=== PATIENT | male | born 1965 | race American Indian/Alaskan Native ===

== ENCOUNTER 2018-06-19 09:03 | Inpatient (IN) | payer MEDICAID ==
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
[2018-06-19] MEDS ORDERED: Albuterol/Ipratropium 3.0-0.5 MG/3 ML Neb Soln NEB ONE (09:33)
[2018-06-19] MEDS: Sodium Chloride 0.9% 10 ML Syringe FLUSH PRN (09:48)
[2018-06-19] MEDS ORDERED: methylPREDNISolone Sodium Succinate 125 MG/2 ML SDV IVPUSH ONE (10:09)
[2018-06-19] MEDS ORDERED: Sodium Chloride 0.9% 1,000 ML IV ONE (10:09)
[2018-06-19] MEDS ORDERED: Acetaminophen/HYDROcodone 325-10 MG Tab PO ONE (10:09)
[2018-06-19] MEDS ORDERED: cefTRIAXone 2 GM in Sodium Chloride 0.9% 100 ML IV ONE (10:09)
[2018-06-19] MEDS ORDERED: Azithromycin 500 MG in Sodium Chloride 0.9% 250 ML IV ONE (10:11)
[2018-06-19 10:21] LABS: ANION GAP 17.4; CHLORIDE,CL 103 mmol/L (101-111); SODIUM,NA 137 mmol/L (135-145)
--- NOTE | 2018-06-19 10:36 | CR ---
Clinical history: 53-year-old male with history "thoracotomy" December 2017 and now WBC 29,000, cough and wheezing. Interpretation: PA/lateral chest films confirms metallic band anchored with screws in the lateral right fifth sixth seventh ribs new since CT exam 27 December 2017 ("multiple rib fractures and right hemoperitoneum"). *Dense new right lower lobe retrocardiac pneumonic like consolidation (infiltrate/atelectasis) when compared to December 2017. Normal cardiac silhouette without cephalization of flow, signs of alveolar edema, lung mass or other focal lobar consolidation. CONCLUSION: Abnormal.
[2018-06-19] MEDS ORDERED: Ondansetron 4 MG/2 ML SDV IVPUSH PRN (11:56)
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
[2018-06-19] MEDS: Heparin Sodium 5,000 Units/ML Vial SUBCUT SCH ×2 (15:03→21:54)
[2018-06-19] MEDS: Piperacillin/Tazobactam 3.375 GM in Sodium Chloride 0.9% 100 ML IV SCH ×2 (15:03→17:52)
[2018-06-19] MEDS: Pregabalin 50 MG Cap PO SCH ×2 (17:55→21:52)
[2018-06-19] MEDS ORDERED: Cyclobenzaprine 10 MG Tab PO SCH (21:00)
[2018-06-19] MEDS: Albuterol/Ipratropium 3.0-0.5 MG/3 ML Neb Soln NEB PRN (21:52)
[2018-06-19] MEDS: Acetaminophen 325 MG Tab PO PRN (22:13)
[2018-06-19] MEDS: Ibuprofen 600 MG Tab PO PRN (22:14)
[2018-06-19] MEDS: Benzonatate 100 MG Cap PO PRN (22:14)
[2018-06-20] MEDS: Piperacillin/Tazobactam 3.375 GM in Sodium Chloride 0.9% 100 ML IV SCH ×5 (00:34→23:42)
[2018-06-20] MEDS: Albuterol/Ipratropium 3.0-0.5 MG/3 ML Neb Soln NEB PRN ×3 (04:39→21:09)
[2018-06-20] MEDS: Heparin Sodium 5,000 Units/ML Vial SUBCUT SCH ×3 (05:07→21:03)
[2018-06-20] MEDS: Albuterol 6.7 GM Inhaler INH PRN (05:12)
[2018-06-20 07:14] LABS: ANION GAP 12.2; CHLORIDE,CL 108 mmol/L (101-111); SODIUM,NA 134 mmol/L (135-145)
[2018-06-20] MEDS: Pregabalin 50 MG Cap PO SCH ×3 (08:38→21:02)
[2018-06-20] MEDS ORDERED: Lisinopril 20 MG Tab PO SCH (09:00)
[2018-06-20] MEDS ORDERED: FLUOXETINE 10 MG PO SCH (09:00)
[2018-06-20] MEDS ORDERED: Metoprolol Succinate 50 MG Tab.ER PO SCH (09:00)
[2018-06-20] MEDS ORDERED: Potassium Chloride 10 MEQ Tab.ER PO ONE (09:00)
--- NOTE | 2018-06-20 10:15 | PCM.PN ---
- General Info Date of Service: 06/20/18 Admission Dx/Problem (Free Text): Pneumonia Subjective Update: Patient continues to have cough. Tessalon Perles did not help. He denied any shortness of breath, nausea or vomiting, change in bowel habits or urinary habits. Denies any other complaints. - Review of Systems General: Reports: No Symptoms HEENT: Reports: No Symptoms Pulmonary: Reports: Cough Cardiovascular: Reports: No Symptoms Gastrointestinal: Reports: No Symptoms Genitourinary: Reports: No Symptoms Musculoskeletal: Reports: No Symptoms Skin: Reports: No Symptoms Neurological: Reports: No Symptoms Psychiatric: Reports: No Symptoms - Patient Data Vitals - Most Recent: Last Vital Signs Temp 36.6 C 06/20/18 08:00 Pulse 97 06/20/18 08:00 Resp 28 H 06/20/18 08:00 BP 119/78 06/20/18 08:00 Pulse Ox 98 06/20/18 08:00 Weight - Most Recent: 122.924 kg I&O - Last 24 Hours: Intake & Output 06/19/18 06/20/18 06/20/18 22:59 06:59 14:59 Intake Total 1539 607 7849 Output Total 125 Balance 6749 178 5123 Lab Results Last 24 Hours: Laboratory Results - last 24 hr 06/19/18 06/19/18 06/19/18 Range/Units 09:45 09:45 09:45 WBC (5.0-10.0) 10^3/uL RBC (4.6-6.2) 10^6/uL Hgb (14.0-18.0) g/dL Hct (40.0-54.0) % MCV (80-100) fL MCH (27.0-34.0) pg MCHC (33.0-35.0) g/dL Plt Count (150-450) 10^3/uL Neut % (Auto) (42.2-75.2) % Lymph % (Auto) (20.5-50.1) % [place] % (Auto) (2-8) % Eos % (Auto) (1.0-3.0) % Baso % (Auto) (0.0-1.0) % Add Manual Diff Neutrophils % (Manual) 78 H (42-75) % Band Neutrophils % 13 % Lymphocytes % (Manual) 6 L (20-50) % Monocytes % (Manual) 3 (2-8) % Sodium 137 (135-145) mmol/L Potassium 3.4 L (3.6-5.0) mmol/L Chloride 103 (101-111) mmol/L Carbon Dioxide 20.0 L (21.0-31.0) mmol/L Anion Gap 17.4 BUN 16 (7-18) mg/dL Creatinine 0.7 (0.6-1.3) mg/dL Est Cr Clr Drug Dosing 114.10 mL/min Estimated GFR (MDRD) > 60 BUN/Creatinine Ratio 22.85 Glucose 106 H (74-105) mg/dL Lactic Acid (0.5-2.2) mmol/L Calcium 8.9 (8.4-10.2) mg/dl Total Bilirubin 1.7 H (0.2-1.0) mg/dL AST 20 (10-42) IU/L ALT 22 (10-60) IU/L Alkaline Phosphatase 106 (42-121) IU/L B-Natriuretic Peptide 28 (0-100) pg/ml Total Protein 7.9 (6.7-8.2) g/dl Albumin 3.0 L (3.2-5.5) g/dl Globulin 4.9 Albumin/Globulin Ratio 0.61 Urine Color (YELLOW) Urine Appearance (CLEAR) Urine pH (5.0-9.0) Ur Specific [place] (1.005-1.030) Urine Protein (NEGATIVE) Urine Glucose (UA) (NEGATIVE) Urine Ketones (NEGATIVE) Urine Occult Blood (NEGATIVE) Urine Nitrite (NEGATIVE) Urine Bilirubin (NEGATIVE) Urine Urobilinogen (0.2-1.0) mg/dL Ur Leukocyte Esterase (NEGATIVE) Urine RBC /HPF Urine WBC (0-5/HPF) /HPF Ur Epithelial Cells /HPF Amorphous Sediment (0/HPF) /HPF Urine Bacteria (0-FEW/HPF) /HPF Urine Mucus /LPF 06/19/18 06/19/18 06/20/18 Range/Units 10:10 10:20 05:59 WBC 20.5 H (5.0-10.0) 10^3/uL RBC 4.65 (4.6-6.2) 10^6/uL Hgb 13.3 L D (14.0-18.0) g/dL Hct 39.6 L (40.0-54.0) % MCV 85.2 (80-100) fL MCH 28.6 (27.0-34.0) pg MCHC 33.6 (33.0-35.0) g/dL Plt Count 232 (150-450) 10^3/uL Neut % (Auto) 88.9 H (42.2-75.2) % Lymph % (Auto) 5.7 L (20.5-50.1) % [place] % (Auto) 5.4 (2-8) % Eos % (Auto) 0.0 L (1.0-3.0) % Baso % (Auto) 0.0 (0.0-1.0) % Add Manual Diff Neutrophils % (Manual) (42-75) % Band Neutrophils % % Lymphocytes % (Manual) (20-50) % Monocytes % (Manual) (2-8) % Sodium (135-145) mmol/L Potassium (3.6-5.0) mmol/L Chloride (101-111) mmol/L Carbon Dioxide (21.0-31.0) mmol/L Anion Gap BUN (7-18) mg/dL Creatinine (0.6-1.3) mg/dL Est Cr Clr Drug Dosing mL/min Estimated GFR (MDRD) BUN/Creatinine Ratio Glucose (74-105) mg/dL Lactic Acid 2.1 (0.5-2.2) mmol/L Calcium (8.4-10.2) mg/dl Total Bilirubin (0.2-1.0) mg/dL AST (10-42) IU/L ALT (10-60) IU/L Alkaline Phosphatase (42-121) IU/L B-Natriuretic Peptide (0-100) pg/ml Total Protein (6.7-8.2) g/dl Albumin (3.2-5.5) g/dl Globulin Albumin/Globulin Ratio Urine Color [place] (YELLOW) Urine Appearance Slightly cloudy (CLEAR) Urine pH 6.0 (5.0-9.0) Ur Specific [place] 1.015 (1.005-1.030) Urine Protein 100 H (NEGATIVE) Urine Glucose (UA) 100 H (NEGATIVE) Urine Ketones 80 H (NEGATIVE) Urine Occult Blood Negative (NEGATIVE) Urine Nitrite Negative (NEGATIVE) Urine Bilirubin Moderate H (NEGATIVE) Urine Urobilinogen >=8.0 H (0.2-1.0) mg/dL Ur Leukocyte Esterase Negative (NEGATIVE) Urine RBC Not seen /HPF Urine WBC 0-5 (0-5/HPF) /HPF Ur Epithelial Cells Moderate H /HPF Amorphous Sediment Few (0/HPF) /HPF Urine Bacteria Rare (0-FEW/HPF) /HPF Urine Mucus Many H /LPF 06/20/18 Range/Units 05:59 WBC (5.0-10.0) 10^3/uL RBC (4.6-6.2) 10^6/uL Hgb (14.0-18.0) g/dL Hct (40.0-54.0) % MCV (80-100) fL MCH (27.0-34.0) pg MCHC (33.0-35.0) g/dL Plt Count (150-450) 10^3/uL Neut % (Auto) (42.2-75.2) % Lymph % (Auto) (20.5-50.1) % [place] % (Auto) (2-8) % Eos % (Auto) (1.0-3.0) % Baso % (Auto) (0.0-1.0) % Add Manual Diff Neutrophils % (Manual) (42-75) % Band Neutrophils % % Lymphocytes % (Manual) (20-50) % Monocytes % (Manual) (2-8) % Sodium 134 L (135-145) mmol/L Potassium 3.2 L (3.6-5.0) mmol/L Chloride 108 (101-111) mmol/L Carbon Dioxide 17.0 L (21.0-31.0) mmol/L Anion Gap 12.2 BUN 21 H (7-18) mg/dL Creatinine 0.7 (0.6-1.3) mg/dL Est Cr Clr Drug Dosing 114.10 mL/min Estimated GFR (MDRD) > 60 BUN/Creatinine Ratio 30.00 Glucose 224 H (74-105) mg/dL Lactic Acid (0.5-2.2) mmol/L Calcium 8.3 L (8.4-10.2) mg/dl Total Bilirubin 0.7 (0.2-1.0) mg/dL AST 18 (10-42) IU/L ALT 21 (10-60) IU/L Alkaline Phosphatase 102 (42-121) IU/L B-Natriuretic Peptide (0-100) pg/ml Total Protein 7.0 (6.7-8.2) g/dl Albumin 2.5 L (3.2-5.5) g/dl Globulin 4.5 Albumin/Globulin Ratio 0.56 Urine Color (YELLOW) Urine Appearance (CLEAR) Urine pH (5.0-9.0) Ur Specific [place] (1.005-1.030) Urine Protein (NEGATIVE) Urine Glucose (UA) (NEGATIVE) Urine Ketones (NEGATIVE) Urine Occult Blood (NEGATIVE) Urine Nitrite (NEGATIVE) Urine Bilirubin (NEGATIVE) Urine Urobilinogen (0.2-1.0) mg/dL Ur Leukocyte Esterase (NEGATIVE) Urine RBC /HPF Urine WBC (0-5/HPF) /HPF Ur Epithelial Cells /HPF Amorphous Sediment (0/HPF) /HPF Urine Bacteria (0-FEW/HPF) /HPF Urine Mucus /LPF Andrés Results Last 24 Hours: Microbiology 06/19/18 10:06 Quick Strep Confirmation Culture - Final Throat NO GROUP A STREP ISOLATED REFERENCE RANGE: NEGATIVE Group A Streptococcus Rapid Screen - Final NEGATIVE STREP A SCREEN REFERENCE RANGE: NEGATIVE 06/19/18 10:06 Influenza Type A Antigen Screen - Final Nasal, Unspecified NEGATIVE INFLUENZA A VIRUS AG REFERENCE RANGE: NEGATIVE Influenza Type B Antigen Screen - Final NEGATIVE INFLUENZA B VIRUS AG REFERENCE RANGE: NEGATIVE 06/19/18 10:20 Anaerobic Blood Culture - Final Blood - Venous - Lab Draw 06/19/18 10:15 Anaerobic Blood Culture - Final Blood - Venous Med Orders - Current: Current Medications Acetaminophen (Tylenol) 650 mg PO Q4H PRN PRN Reason: Pain (Mild 1-3)/fever Last Admin: 06/19/18 22:13 Dose: 650 mg Albuterol (Proventil Hfa) 0 gm INH Q4HR PRN PRN Reason: Wheezing Last Admin: 06/20/18 05:12 Dose: 2 inhaler Albuterol/Ipratropium (Duoneb 3.0-0.5 Mg/3 Ml) 3 ml NEB Q4HRRT PRN PRN Reason: shortness of breath/wheezing Last Admin: 06/20/18 04:39 Dose: 3 ml Benzonatate (Tessalon Perles) 100 mg PO QID PRN PRN Reason: Cough Last Admin: 06/19/18 22:14 Dose: 100 mg Heparin Sodium (Porcine) (Heparin Sodium) 5,000 units SUBCUT Q8HR [facility] Last Admin: 06/20/18 05:07 Dose: Not Given Piperacillin Sod/Tazobactam (Sod 3.375 gm/ Sodium Chloride) 100 mls @ 200 mls/ hr IV Q6HR [facility] Last Infusion: 06/20/18 05:49 Dose: Infused Ibuprofen (Motrin) 600 mg PO Q8H PRN PRN Reason: Pain Last Admin: 06/19/18 22:14 Dose: 600 mg Ondansetron HCl (Zofran) 4 mg IVPUSH Q4HR PRN PRN Reason: Nausea/Vomiting Pregabalin (Lyrica) 200 mg PO TID [facility] Last Admin: 06/20/18 08:38 Dose: 200 mg Sodium Chloride (Saline Flush) 10 ml FLUSH ASDIRECTED PRN PRN Reason: Keep Vein Open Last Admin: 06/19/18 09:48 Dose: 10 ml Discontinued Medications Hydrocodone Bitart/Acetaminophen ([place] 325-10 Mg) 1 tab PO ONETIME ONE Stop: 06/19/18 10:10 Last Admin: 06/19/18 10:31 Dose: 1 tab Albuterol/Ipratropium (Duoneb 3.0-0.5 Mg/3 Ml) 3 ml NEB ONETIME ONE Stop: 06/19/18 09:34 Last Admin: 06/19/18 09:40 Dose: 3 ml Azithromycin 500 mg/ Sodium (Chloride) 250 mls @ 250 mls/hr IV ONETIME ONE Stop: 06/19/18 11:10 Last Admin: 06/19/18 11:10 Dose: 250 mls/hr Ceftriaxone Sodium 2 gm/ (Sodium Chloride) 100 mls @ 200 mls/hr IV ONETIME ONE Stop: 06/19/18 10:38 Last Admin: 06/19/18 10:35 Dose: 200 mls/hr Sodium Chloride (Normal Saline) 1,000 mls @ 999 mls/hr IV .BOLUS ONE Stop: 06/19/18 11:09 Last Admin: 06/19/18 10:27 Dose: 999 mls/hr Methylprednisolone Sodium Succinate (Solu-Medrol) 125 mg IVPUSH ONETIME ONE Stop: 06/19/18 10:10 Last Admin: 06/19/18 10:27 Dose: 125 mg Potassium Chloride (Klor-Con 10) 40 meq PO ONETIME ONE Stop: 06/20/18 09:01 Last Admin: 06/20/18 08:38 Dose: 40 meq - Exam General: Alert, Oriented Lungs: Clear to Auscultation, Normal Respiratory Effort Cardiovascular: Regular Rate GI/Abdominal Exam: Normal Bowel Sounds, Soft, Non-Tender, No Distention Skin: Warm, Dry, Intact Wound/Incisions: Healing Well Neurological: No New Focal Deficit Psy/Mental Status: Alert, Normal Affect, Normal Mood - Problem List Review Problem List Initiated/Reviewed/Updated: Yes - My Orders Last 24 Hours: My Active Orders 06/19/18 11:56 Patient Status [ADT] Routine Oxygen Therapy [RC] .PRN Up With Assistance [RC] ASDIRECTED VTE/DVT Education [RC] , Vital Signs [RC] 00,04,08,12,16,20 PT Evaluation and Treatment [CONS] Routine Acetaminophen [Tylenol] 650 mg PO Q4H PRN Albuterol/Ipratropium [DuoNeb 3.0-0.5 MG/3 ML] 3 ml NEB Q4HRRT PRN Ondansetron [Zofran] 4 mg IVPUSH Q4HR PRN Resuscitation Status Routine 06/19/18 11:57 Intake and Output [RC] .PRN 06/19/18 11:59 RT Aerosol Therapy [RC] ASDIRECTED Albuterol [Proventil HFA] 0 gm INH Q4HR PRN 06/19/18 13:00 Piperacillin/Tazobactam [Zosyn] 3.375 gm Sodium Chloride 0.9% [Normal Saline] 100 ml IV Q6HR 06/19/18 14:00 Heparin Sodium 5,000 units SUBCUT Q8HR Pregabalin [Lyrica] 200 mg PO TID 06/19/18 17:30 LEGIONELLA ANTIGEN [MREF] Stat STREP PNEUMONIAE ANTIGEN [MREF] Stat 06/19/18 21:50 CULTURE ROUTINE NO SMEAR [RM] Stat 06/19/18 21:56 Benzonatate [Tessalon Perles] 100 mg PO QID PRN Ibuprofen [Motrin] 600 mg PO Q8H PRN 06/19/18 Lunch Regular Diet [DIET] 06/21/18 08:18 BASIC METABOLIC PANEL,BMP [CHEM] Routine CBC WITH AUTO DIFF [HEME] Routine - Plan Plan:: lobar pneumonia continue Zosyn, check MRSA nose swab will check blood cultures, strep antigen, Legionella antigen Place patient on nebulizer treatment as needed for shortness of breath Hypertension continue home meds Hypokalemia replete Chronic pain syndrome continue lyrica depression continue fluoxetine DVT prophylaxis heparin
[2018-06-20] MEDS: Sodium Chloride 0.9% 10 ML Syringe FLUSH PRN (11:53)
[2018-06-20] MEDS: guaiFENesin/Dextromethorphan 100-10 MG/5 ML Soln 5 ML Cup PO PRN (17:37)
[2018-06-20] MEDS: Benzonatate 100 MG Cap PO PRN (21:09)
[2018-06-21] MEDS: Albuterol 6.7 GM Inhaler INH PRN ×2 (05:51→21:21)
[2018-06-21] MEDS: Piperacillin/Tazobactam 3.375 GM in Sodium Chloride 0.9% 100 ML IV SCH ×3 (05:52→17:39)
[2018-06-21] MEDS: Heparin Sodium 5,000 Units/ML Vial SUBCUT SCH ×3 (05:53→22:20)
[2018-06-21] MEDS: guaiFENesin/Dextromethorphan 100-10 MG/5 ML Soln 5 ML Cup PO PRN ×3 (06:02→20:44)
[2018-06-21 06:59] LABS: ANION GAP 15.8; CHLORIDE,CL 107 mmol/L (101-111); SODIUM,NA 139 mmol/L (135-145)
[2018-06-21] MEDS: Pregabalin 50 MG Cap PO SCH ×3 (10:29→20:44)
--- NOTE | 2018-06-21 11:22 | PCM.PN ---
- General Info Date of Service: 06/21/18 Admission Dx/Problem (Free Text): Pneumonia Subjective Update: Patient continues to have cough. He was started on Robitussin-DM without much help. Patient is positive for strep pneumo antigen in the urine, MRSA swab cultures showed gram-positive cocci, but unclear if it's MRSA or not. He denied any other complaints except for loose stools. - Review of Systems General: Reports: No Symptoms HEENT: Reports: No Symptoms Pulmonary: Reports: Cough Cardiovascular: Reports: No Symptoms Gastrointestinal: Reports: Diarrhea Genitourinary: Reports: No Symptoms Musculoskeletal: Reports: No Symptoms Skin: Reports: No Symptoms Neurological: Reports: No Symptoms Psychiatric: Reports: No Symptoms - Patient Data Vitals - Most Recent: Last Vital Signs Temp 37.1 C 06/21/18 08:00 Pulse 90 06/21/18 08:00 Resp 18 06/21/18 08:00 BP 130/90 06/21/18 08:00 Pulse Ox 98 06/21/18 08:00 Weight - Most Recent: 122.924 kg I&O - Last 24 Hours: Intake & Output 06/20/18 06/21/18 06/21/18 22:59 06:59 14:59 Intake Total 750 609 450 Balance 750 609 450 Lab Results Last 24 Hours: Laboratory Results - last 24 hr 06/21/18 06/21/18 Range/Units 05:48 05:48 WBC 21.0 H (5.0-10.0) 10^3/uL RBC 4.60 (4.6-6.2) 10^6/uL Hgb 13.1 L (14.0-18.0) g/dL Hct 39.8 L (40.0-54.0) % MCV 86.5 (80-100) fL MCH 28.5 (27.0-34.0) pg MCHC 32.9 L (33.0-35.0) g/dL Plt Count 265 (150-450) 10^3/uL Neut % (Auto) 82.1 H (42.2-75.2) % Lymph % (Auto) 9.9 L (20.5-50.1) % [place] % (Auto) 7.9 (2-8) % Eos % (Auto) 0.1 L (1.0-3.0) % Baso % (Auto) 0.0 (0.0-1.0) % Add Manual Diff Sodium 139 (135-145) mmol/L Potassium 3.8 (3.6-5.0) mmol/L Chloride 107 (101-111) mmol/L Carbon Dioxide 20.0 L (21.0-31.0) mmol/L Anion Gap 15.8 BUN 21 H (7-18) mg/dL Creatinine 0.6 (0.6-1.3) mg/dL Est Cr Clr Drug Dosing 133.12 mL/min Estimated GFR (MDRD) > 60 Glucose 113 H (74-105) mg/dL Calcium 8.5 (8.4-10.2) mg/dl Andrés Results Last 24 Hours: Microbiology 06/19/18 10:15 Aerobic Blood Culture - Preliminary Blood - Venous NO GROWTH AFTER 2 DAYS Anaerobic Blood Culture - Final 06/19/18 10:20 Aerobic Blood Culture - Preliminary Blood - Venous - Lab Draw NO GROWTH AFTER 2 DAYS Anaerobic Blood Culture - Final 06/19/18 17:30 Streptococcus pneumoniae Antigen (M - Final Urine 06/19/18 17:30 Legionella Urinary Antigen - Final Urine 06/19/18 21:50 Routine Culture - Preliminary Nasal, Unspecified Med Orders - Current: Current Medications Acetaminophen (Tylenol) 650 mg PO Q4H PRN PRN Reason: Pain (Mild 1-3)/fever Last Admin: 06/19/18 22:13 Dose: 650 mg Albuterol (Proventil Hfa) 0 gm INH Q4HR PRN PRN Reason: Wheezing Last Admin: 06/21/18 05:51 Dose: 2 inhaler Albuterol/Ipratropium (Duoneb 3.0-0.5 Mg/3 Ml) 3 ml NEB Q4HRRT PRN PRN Reason: shortness of breath/wheezing Last Admin: 06/20/18 21:09 Dose: 3 ml Benzonatate (Tessalon Perles) 100 mg PO QID PRN PRN Reason: Cough Last Admin: 06/20/18 21:09 Dose: 100 mg Guaifenesin/Phenylephrine HCl (Robitussin Dm) 10 ml PO Q6HR PRN PRN Reason: Cough Last Admin: 06/21/18 06:02 Dose: 10 ml Heparin Sodium (Porcine) (Heparin Sodium) 5,000 units SUBCUT Q8HR [facility] Last Admin: 06/21/18 05:53 Dose: 5,000 units Piperacillin Sod/Tazobactam (Sod 3.375 gm/ Sodium Chloride) 100 mls @ 200 mls/ hr IV Q6HR [facility] Last Admin: 06/21/18 05:52 Dose: 200 mls/hr Ibuprofen (Motrin) 600 mg PO Q8H PRN PRN Reason: Pain Last Admin: 06/19/18 22:14 Dose: 600 mg Ondansetron HCl (Zofran) 4 mg IVPUSH Q4HR PRN PRN Reason: Nausea/Vomiting Pregabalin (Lyrica) 200 mg PO TID [facility] Last Admin: 06/21/18 10:29 Dose: 200 mg Sodium Chloride (Saline Flush) 10 ml FLUSH ASDIRECTED PRN PRN Reason: Keep Vein Open Last Admin: 06/20/18 11:53 Dose: 10 ml Discontinued Medications Hydrocodone Bitart/Acetaminophen ([place] 325-10 Mg) 1 tab PO ONETIME ONE Stop: 06/19/18 10:10 Last Admin: 06/19/18 10:31 Dose: 1 tab Albuterol/Ipratropium (Duoneb 3.0-0.5 Mg/3 Ml) 3 ml NEB ONETIME ONE Stop: 06/19/18 09:34 Last Admin: 06/19/18 09:40 Dose: 3 ml Azithromycin 500 mg/ Sodium (Chloride) 250 mls @ 250 mls/hr IV ONETIME ONE Stop: 06/19/18 11:10 Last Admin: 06/19/18 11:10 Dose: 250 mls/hr Ceftriaxone Sodium 2 gm/ (Sodium Chloride) 100 mls @ 200 mls/hr IV ONETIME ONE Stop: 06/19/18 10:38 Last Admin: 06/19/18 10:35 Dose: 200 mls/hr Sodium Chloride (Normal Saline) 1,000 mls @ 999 mls/hr IV .BOLUS ONE Stop: 06/19/18 11:09 Last Admin: 06/19/18 10:27 Dose: 999 mls/hr Methylprednisolone Sodium Succinate (Solu-Medrol) 125 mg IVPUSH ONETIME ONE Stop: 06/19/18 10:10 Last Admin: 06/19/18 10:27 Dose: 125 mg Potassium Chloride (Klor-Con 10) 40 meq PO ONETIME ONE Stop: 06/20/18 09:01 Last Admin: 06/20/18 08:38 Dose: 40 meq - Exam General: Alert, Oriented Lungs: Clear to Auscultation, Normal Respiratory Effort Cardiovascular: Regular Rate, Regular Rhythm GI/Abdominal Exam: Normal Bowel Sounds, Soft, Non-Tender, No Distention Skin: Warm, Dry, Intact Neurological: No New Focal Deficit Psy/Mental Status: Alert, Normal Affect, Normal Mood - Problem List Review Problem List Initiated/Reviewed/Updated: Yes - My Orders Last 24 Hours: My Active Orders 06/20/18 15:58 Dextromethorphan/guaiFENesin [Robitussin DM] 10 ml PO Q6HR PRN - Plan Plan:: lobar pneumonia due to strep pneumo continue Zosyn, awaiting MRSA cultures Strep pneumo antigen is positive Place patient on nebulizer treatment as needed for shortness of breath Hypertension continue home meds Hypokalemia Resolved Chronic pain syndrome continue lyrica depression continue fluoxetine DVT prophylaxis heparin
[2018-06-21] MEDS: Acetaminophen 325 MG Tab PO PRN ×2 (12:32→20:44)
[2018-06-21] MEDS: Benzonatate 100 MG Cap PO PRN ×2 (12:33→20:44)
[2018-06-21] MEDS: Albuterol/Ipratropium 3.0-0.5 MG/3 ML Neb Soln NEB PRN (17:48)
[2018-06-21] MEDS: Sodium Chloride 0.9% 10 ML Syringe FLUSH PRN (20:47)
[2018-06-21] MEDS: Ibuprofen 600 MG Tab PO PRN (23:43)
[2018-06-22] MEDS: Sodium Chloride 0.9% 10 ML Syringe FLUSH PRN ×5 (00:43→17:38)
[2018-06-22] MEDS: Albuterol/Ipratropium 3.0-0.5 MG/3 ML Neb Soln NEB PRN (00:47)
[2018-06-22] MEDS: Piperacillin/Tazobactam 3.375 GM in Sodium Chloride 0.9% 100 ML IV SCH ×5 (05:57→17:38)
[2018-06-22] MEDS: Heparin Sodium 5,000 Units/ML Vial SUBCUT SCH ×3 (06:02→22:28)
[2018-06-22] MEDS: Pregabalin 50 MG Cap PO SCH ×3 (10:05→20:24)
[2018-06-22] MEDS: Ibuprofen 600 MG Tab PO PRN ×2 (11:51→20:25)
[2018-06-22] MEDS: Benzonatate 100 MG Cap PO PRN ×2 (11:51→20:24)
[2018-06-22] MEDS: guaiFENesin/Dextromethorphan 100-10 MG/5 ML Soln 5 ML Cup PO PRN ×2 (11:51→20:24)
--- NOTE | 2018-06-22 12:42 | PCM.PN ---
- General Info Date of Service: 06/22/18 Admission Dx/Problem (Free Text): Pneumonia Subjective Update: Patient continues to have cough. no associated sputum He was started on Robitussin-DM without much help. no sob, no cp - Review of Systems General: Reports: Weakness. Denies: Fever Pulmonary: Reports: Cough. Denies: Shortness of Breath, Sputum, Hemoptysis Cardiovascular: Denies: Chest Pain Gastrointestinal: Denies: Abdominal Pain Neurological: Denies: Confusion - Patient Data Vitals - Most Recent: Last Vital Signs Temp 37.0 C 06/22/18 11:51 Pulse 87 06/22/18 11:51 Resp 16 06/22/18 11:51 BP 126/84 06/22/18 08:00 Pulse Ox 99 06/22/18 11:51 Weight - Most Recent: 122.924 kg I&O - Last 24 Hours: Intake & Output 06/21/18 06/22/18 06/22/18 22:59 06:59 14:59 Intake Total 760 643 260 Balance 760 643 260 Andrés Results Last 24 Hours: Microbiology 06/19/18 10:15 Aerobic Blood Culture - Preliminary Blood - Venous NO GROWTH AFTER 3 DAYS Anaerobic Blood Culture - Final 06/19/18 10:20 Aerobic Blood Culture - Preliminary Blood - Venous - Lab Draw NO GROWTH AFTER 3 DAYS Anaerobic Blood Culture - Final 06/19/18 21:50 Routine Culture - Final Nasal, Unspecified Med Orders - Current: Current Medications Acetaminophen (Tylenol) 650 mg PO Q4H PRN PRN Reason: Pain (Mild 1-3)/fever Last Admin: 06/21/18 20:44 Dose: 650 mg Albuterol (Proventil Hfa) 0 gm INH Q4HR PRN PRN Reason: Wheezing Last Admin: 06/21/18 21:21 Dose: 2 inhaler Albuterol/Ipratropium (Duoneb 3.0-0.5 Mg/3 Ml) 3 ml NEB Q4HRRT PRN PRN Reason: shortness of breath/wheezing Last Admin: 06/22/18 00:47 Dose: 3 ml Benzonatate (Tessalon Perles) 100 mg PO QID PRN PRN Reason: Cough Last Admin: 06/22/18 11:51 Dose: 100 mg Guaifenesin/Phenylephrine HCl (Robitussin Dm) 10 ml PO Q6HR PRN PRN Reason: Cough Last Admin: 06/22/18 11:51 Dose: 10 ml Heparin Sodium (Porcine) (Heparin Sodium) 5,000 units SUBCUT Q8HR [facility] Last Admin: 06/22/18 06:02 Dose: 5,000 units Piperacillin Sod/Tazobactam (Sod 3.375 gm/ Sodium Chloride) 100 mls @ 200 mls/ hr IV Q6HR [facility] Last Admin: 06/22/18 11:42 Dose: 200 mls/hr Ibuprofen (Motrin) 600 mg PO Q8H PRN PRN Reason: Pain Last Admin: 06/22/18 11:51 Dose: 600 mg Ondansetron HCl (Zofran) 4 mg IVPUSH Q4HR PRN PRN Reason: Nausea/Vomiting Pregabalin (Lyrica) 200 mg PO TID [facility] Last Admin: 06/22/18 10:05 Dose: 200 mg Sodium Chloride (Saline Flush) 10 ml FLUSH ASDIRECTED PRN PRN Reason: Keep Vein Open Last Admin: 06/22/18 11:42 Dose: 10 ml Discontinued Medications Hydrocodone Bitart/Acetaminophen ([place] 325-10 Mg) 1 tab PO ONETIME ONE Stop: 06/19/18 10:10 Last Admin: 06/19/18 10:31 Dose: 1 tab Albuterol/Ipratropium (Duoneb 3.0-0.5 Mg/3 Ml) 3 ml NEB ONETIME ONE Stop: 06/19/18 09:34 Last Admin: 06/19/18 09:40 Dose: 3 ml Azithromycin 500 mg/ Sodium (Chloride) 250 mls @ 250 mls/hr IV ONETIME ONE Stop: 06/19/18 11:10 Last Admin: 06/19/18 11:10 Dose: 250 mls/hr Ceftriaxone Sodium 2 gm/ (Sodium Chloride) 100 mls @ 200 mls/hr IV ONETIME ONE Stop: 06/19/18 10:38 Last Admin: 06/19/18 10:35 Dose: 200 mls/hr Sodium Chloride (Normal Saline) 1,000 mls @ 999 mls/hr IV .BOLUS ONE Stop: 06/19/18 11:09 Last Admin: 06/19/18 10:27 Dose: 999 mls/hr Methylprednisolone Sodium Succinate (Solu-Medrol) 125 mg IVPUSH ONETIME ONE Stop: 06/19/18 10:10 Last Admin: 06/19/18 10:27 Dose: 125 mg Potassium Chloride (Klor-Con 10) 40 meq PO ONETIME ONE Stop: 06/20/18 09:01 Last Admin: 06/20/18 08:38 Dose: 40 meq - Exam General: Alert, Oriented Neck: Supple Lungs: Clear to Auscultation, Normal Respiratory Effort Cardiovascular: Regular Rate, Regular Rhythm GI/Abdominal Exam: Normal Bowel Sounds, Soft, Non-Tender Extremities: Normal Inspection. No: Pedal Edema - Problem List & Annotations (1) Pneumonia SNOMED Code(s): 766672146 Code(s): J18.9 - PNEUMONIA, UNSPECIFIED ORGANISM Status: Acute Current Visit: Yes - Problem List Review Problem List Initiated/Reviewed/Updated: Yes - Plan Plan:: lobar pneumonia due to strep pneumo non MRSA cultures Strep pneumo antigen is positive Place patient on nebulizer treatment as needed for shortness of breath continue Zosyn, Hypertension continue home meds Hypokalemia Resolved Chronic pain syndrome continue lyrica depression continue fluoxetine DVT prophylaxis heparin
[2018-06-22] MEDS: Acetaminophen 325 MG Tab PO PRN (16:08)
[2018-06-22] MEDS: Albuterol 6.7 GM Inhaler INH PRN (20:34)
[2018-06-23] MEDS: Piperacillin/Tazobactam 3.375 GM in Sodium Chloride 0.9% 100 ML IV SCH ×3 (00:03→11:25)
[2018-06-23] MEDS: Sodium Chloride 0.9% 10 ML Syringe FLUSH PRN ×4 (00:38→11:26)
[2018-06-23] MEDS: Heparin Sodium 5,000 Units/ML Vial SUBCUT SCH ×2 (05:54→14:47)
[2018-06-23 08:20] VITALS: BP 118/79
[2018-06-23] MEDS: Albuterol 6.7 GM Inhaler INH PRN (08:55)
[2018-06-23] MEDS: Pregabalin 50 MG Cap PO SCH ×2 (09:30→13:18)
--- NOTE | 2018-06-23 10:46 | PCM.DCSUM1 ---
Discharge Summary - Hospital Course Free Text/Narrative:: Lobar pneumonia due to strep pneumo possible MSSA improve afebrile treated with Zosyn, discharge on Augmentin Hypertension BP has been on the lower side hold Lisinopril Hypokalemia Resolved cont replacement Chronic pain syndrome continue lyrica Diagnosis: Stroke: No - Discharge Data Discharge Date: 06/23/18 Discharge Disposition: Home, Self-Care 01 Condition: Stable - Discharge Diagnosis/Problem(s) (1) Pneumonia SNOMED Code(s): 223533012 ICD Code: J18.9 - PNEUMONIA, UNSPECIFIED ORGANISM Status: Acute Current Visit: Yes - Patient Summary/Data Consults: Consultations 06/19/18 11:56 PT Evaluation and Treatment [CONS] Routine - Patient Instructions Diet: Heart Healthy Diet Activity: As Tolerated - Discharge Plan *PRESCRIPTION DRUG MONITORING PROGRAM REVIEWED*: No *COPY OF PRESCRIPTION DRUG MONITORING REPORT IN PATIENT NEETA: No Prescriptions/Med Rec: Amoxicillin/Clavulanate K [Augmentin 875-125 MG] 1 tab PO BID #20 tablet Fluticasone Propionate [Flonase] 1 gm NASBOTH DAILY #1 bottle guaiFENesin [Robitussin] 200 mg PO TID PRN #250 ml PRN Reason: Cough Home Medications: Home Meds Ibuprofen [Motrin] 600 mg PO Q6H PRN 08/22/14 [History] Acetaminophen [Tylenol] 650 mg PO Q4H PRN #30 tablet 08/24/14 [Rx] Albuterol Sulfate [Proair Hfa] 2 puff IH Q6H PRN 06/19/18 [History] Cetirizine HCl [Zyrtec] 10 mg PO DAILY 06/19/18 [History] Folic Acid 1 mg PO DAILY 06/19/18 [History] Potassium Chloride 10 meq PO BID 06/19/18 [History] Pregabalin [Lyrica] 200 mg PO TID 06/19/18 [History] Amoxicillin/Clavulanate K [Augmentin 875-125 MG] 1 tab PO BID #20 tablet [Rx] Fluticasone Propionate [Flonase] 1 gm NASBOTH DAILY #1 bottle 06/23/18 [Rx] guaiFENesin [Robitussin] 200 mg PO TID PRN #250 ml 06/23/18 [Rx] Patient Handouts: Community-Acquired Pneumonia, Adult, [id number] - Discharge Summary/Plan Comment DC Time >30 min.: No - General Info Date of Service: 06/23/18 Subjective Update: continues to have cough. no associated sputum no fever no sob, no cp difficulty hearing Functional Status: Reports: Pain Controlled, Tolerating Diet - Review of Systems General: Denies: Fever Pulmonary: Reports: Cough. Denies: Shortness of Breath, Sputum Cardiovascular: Denies: Chest Pain Gastrointestinal: Denies: Abdominal Pain Neurological: Denies: Confusion - Patient Data Vitals - Most Recent: Last Vital Signs Temp 36.4 C 06/23/18 08:19 Pulse 76 06/23/18 08:19 Resp 20 06/23/18 08:19 BP 118/79 06/23/18 08:19 Pulse Ox 98 06/23/18 08:19 Weight - Most Recent: 122.924 kg I&O - Last 24 hours: Intake & Output 06/22/18 06/23/18 06/23/18 22:59 06:59 14:59 Intake Total 1392 786 Balance 1392 786 [place] Results - Last 24 hrs: Microbiology 06/19/18 10:15 Aerobic Blood Culture - Preliminary Blood - Venous NO GROWTH AFTER 4 DAYS Anaerobic Blood Culture - Final 06/19/18 10:20 Aerobic Blood Culture - Preliminary Blood - Venous - Lab Draw NO GROWTH AFTER 4 DAYS Anaerobic Blood Culture - Final Med Orders - Current: Current Medications Acetaminophen (Tylenol) 650 mg PO Q4H PRN PRN Reason: Pain (Mild 1-3)/fever Last Admin: 06/22/18 16:08 Dose: 650 mg Albuterol (Proventil Hfa) 0 gm INH Q4HR PRN PRN Reason: Wheezing Last Admin: 06/23/18 08:55 Dose: 2 inhaler Albuterol/Ipratropium (Duoneb 3.0-0.5 Mg/3 Ml) 3 ml NEB Q4HRRT PRN PRN Reason: shortness of breath/wheezing Last Admin: 06/22/18 00:47 Dose: 3 ml Benzonatate (Tessalon Perles) 100 mg PO QID PRN PRN Reason: Cough Last Admin: 06/22/18 20:24 Dose: 100 mg Fluticasone Propionate (Flonase) 0 gm NASBOTH DAILY NIC Guaifenesin/Phenylephrine HCl (Robitussin Dm) 10 ml PO Q6HR PRN PRN Reason: Cough Last Admin: 06/22/18 20:24 Dose: 10 ml Heparin Sodium (Porcine) (Heparin Sodium) 5,000 units SUBCUT Q8HR [facility] Last Admin: 06/23/18 05:54 Dose: 5,000 units Piperacillin Sod/Tazobactam (Sod 3.375 gm/ Sodium Chloride) 100 mls @ 200 mls/ hr IV Q6HR [facility] Last Infusion: 06/23/18 06:28 Dose: Infused Ibuprofen (Motrin) 600 mg PO Q8H PRN PRN Reason: Pain Last Admin: 06/22/18 20:25 Dose: 600 mg Ondansetron HCl (Zofran) 4 mg IVPUSH Q4HR PRN PRN Reason: Nausea/Vomiting Pregabalin (Lyrica) 200 mg PO TID [facility] Last Admin: 06/22/18 20:24 Dose: 200 mg Sodium Chloride (Saline Flush) 10 ml FLUSH ASDIRECTED PRN PRN Reason: Keep Vein Open Last Admin: 06/23/18 05:51 Dose: 10 ml Discontinued Medications Hydrocodone Bitart/Acetaminophen ([place] 325-10 Mg) 1 tab PO ONETIME ONE Stop: 06/19/18 10:10 Last Admin: 06/19/18 10:31 Dose: 1 tab Albuterol/Ipratropium (Duoneb 3.0-0.5 Mg/3 Ml) 3 ml NEB ONETIME ONE Stop: 06/19/18 09:34 Last Admin: 06/19/18 09:40 Dose: 3 ml Azithromycin 500 mg/ Sodium (Chloride) 250 mls @ 250 mls/hr IV ONETIME ONE Stop: 06/19/18 11:10 Last Admin: 06/19/18 11:10 Dose: 250 mls/hr Ceftriaxone Sodium 2 gm/ (Sodium Chloride) 100 mls @ 200 mls/hr IV ONETIME ONE Stop: 06/19/18 10:38 Last Admin: 06/19/18 10:35 Dose: 200 mls/hr Sodium Chloride (Normal Saline) 1,000 mls @ 999 mls/hr IV .BOLUS ONE Stop: 06/19/18 11:09 Last Admin: 06/19/18 10:27 Dose: 999 mls/hr Methylprednisolone Sodium Succinate (Solu-Medrol) 125 mg IVPUSH ONETIME ONE Stop: 06/19/18 10:10 Last Admin: 06/19/18 10:27 Dose: 125 mg Potassium Chloride (Klor-Con 10) 40 meq PO ONETIME ONE Stop: 06/20/18 09:01 Last Admin: 06/20/18 08:38 Dose: 40 meq - Exam General: Reports: Alert, Oriented HEENT: Reports: Other (r. ear tympanic mambrane erythema) Neck: Reports: Supple Lungs: Reports: Clear to Auscultation, Normal Respiratory Effort Cardiovascular: Reports: Regular Rate, Regular Rhythm GI/Abdominal Exam: Normal Bowel Sounds, Soft, Non-Tender Extremities: Normal Inspection, No Pedal Edema Neurological: Reports: No New Focal Deficit, Other (hard of hearing) Psy/Mental Status: Reports: Alert, Normal Affect, Normal Mood
[2018-06-23] MEDS: Ibuprofen 600 MG Tab PO PRN (11:40)
[2018-06-24] MEDS ORDERED: Fluticasone Propionate Nasal Spray 16 GM Bottle NASBOTH SCH (09:00)
== END 2018-06-23 13:30 | disposition home or self-care (01) | DRG 194 ==
LOC: DL.ED 09:03 → DL.MS 11:36 → UNDOADMIN 11:36 → DL.MS 11:56
PROVIDERS: ADMIT Internal Medicine; ATTEND Internal Medicine
DX: J13 Pneumonia due to Streptococcus pneumoniae (principal); Z68.42 Body mass index [BMI] 45.0-49.9, adult; F41.9 Anxiety disorder, unspecified; J45.909 Unspecified asthma, uncomplicated; F32.9 Major depressive disorder, single episode, unspecified; B19.20 Unspecified viral hepatitis C without hepatic coma; E78.00 Pure hypercholesterolemia, unspecified; I10 Essential (primary) hypertension; E66.9 Obesity, unspecified; Z96.649 Presence of unspecified artificial hip joint; E87.6 Hypokalemia; G89.4 Chronic pain syndrome; B95.61 Methicillin susceptible Staphylococcus aureus infection as the cause of diseases classified elsewhere; Z91.048 Other nonmedicinal substance allergy status; Z79.899 Other long term (current) drug therapy
CPT/HCPCS: 36415; 71046; 80048; 80053; 81001; 83605; 83880; 85025; 87040; 87081; 87430; 87804; 87899; 94640; 96365; 96375; 97161-GP; 99285-25; A9270-GY; J0456; J0696; J1644; J2543; J2930; J7030; J7050; J7620-GY

== ENCOUNTER 2020-02-01 13:06 | Emergency (ER) | payer MEDICAID ==
[2020-02-01 13:24] VITALS: BP 144/99; PULSE 104
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
[2020-02-01 14:14] LABS: ANION GAP 12.9 mEq/L (7-13); CHLORIDE,CL 100 mmol/L (98-107); SODIUM,NA 138 mmol/L (136-145)
== END 2020-02-01 15:22 | disposition left against medical advice (07) ==
LOC: DL.ED 13:06
DX: M79.662 Pain in left lower leg (principal); M79.661 Pain in right lower leg; I10 Essential (primary) hypertension; J45.909 Unspecified asthma, uncomplicated; G62.9 Polyneuropathy, unspecified; Z91.048 Other nonmedicinal substance allergy status; Z88.8 Allergy status to other drugs, medicaments and biological substances; Z20.828 Contact with and (suspected) exposure to other viral communicable diseases
CPT/HCPCS: 36415; 80053; 80305-QW; 80307; 81001; 83605; 83880; 84484; 85025; 87040; 87086; 87804; 93005; 99285-25; U0002

== ENCOUNTER 2023-03-12 16:08 | Emergency (ER) | payer MEDICAID ==
[2023-03-12] MEDS ORDERED: Sodium Chloride 0.9% 10 ML Syringe FLUSH PRN (16:16)
[2023-03-12] MEDS ORDERED: Aspirin 81 MG Tab.Chew PO ONE (16:46)
[2023-03-12 17:16] VITALS: BP 130/44; PULSE 103
[2023-03-12 17:22] LABS: BASOPHILS PERCENT AUTO 0.5 % (0.0-1.0); EOSINOPHILS PERCENT AUTO 1.4 % (1.0-3.0); HEMATOCRIT 45.8 % (40.0-54.0); HEMOGLOBIN 15.2 g/dL (14.0-18.0); LYMPHOCYTES PERCENT AUTO 20.1 % (20.5-50.1); MEAN CORPUSCULAR HEMOGLOBIN 31.8 pg (27.0-34.0); MEAN CORPUSCULAR HGB CONC 33.2 g/dL (33.0-35.0); MEAN CORPUSCULAR VOLUME 95.8 fL (80-100); MONOCYTES PERCENT AUTO 11.8 % (2-8); NEUTROPHILS PERCENT AUTO 66.2 % (42.2-75.2); PLATELET COUNT,PLT 206 10^3/uL (150-450); RED BLOOD CELL COUNT 4.78 10^6/uL (4.6-6.2); WHITE BLOOD CELL COUNT,WBC 7.9 10^3/uL (5.0-10.0)
[2023-03-12 17:41] LABS: ALBUMIN 3.1 g/dL (3.4-5.0); ANION GAP 14.5 mEq/L (7-13); BILIRUBIN TOTAL 0.5 mg/dL (0.2-1.0); BUN/CREATININE RATIO 21.1 (No establ ref range); CALCIUM 8.6 mg/dL (8.5-10.1); CREATININE 0.95 mg/dL (0.70-1.30); EST CRCL DRUG DOSING (CG) 80.21 mL/min; POTASSIUM,K 3.5 mmol/L (3.5-5.1); PROTEIN TOTAL,TP 7.8 g/dL (6.4-8.2)
[2023-03-12 17:43] LABS: A/G RATIO 0.66
== END 2023-03-12 18:30 | disposition home or self-care (01) ==
LOC: DL.ED 16:08
DX: E66.2 Morbid (severe) obesity with alveolar hypoventilation (principal); K70.9 Alcoholic liver disease, unspecified; R60.0 Localized edema; I10 Essential (primary) hypertension; J45.909 Unspecified asthma, uncomplicated; Z68.42 Body mass index [BMI] 45.0-49.9, adult; Z91.048 Other nonmedicinal substance allergy status; Z88.8 Allergy status to other drugs, medicaments and biological substances
CPT/HCPCS: 36415; 71045; 80053; 83605; 83880; 84484; 85025; 85379; 93005; 93010; 99284; 99285; A9270; J3490

== ENCOUNTER 2024-11-22 17:05 | Emergency (ER) | payer MEDICAID ==
[2024-11-22 18:15] VITALS: BP 118/79; PULSE 109
[2024-11-22 18:27] LABS: BASOPHILS PERCENT AUTO 0.2 % (0.0-1.0); EOSINOPHILS PERCENT AUTO 2.8 % (1.0-3.0); LYMPHOCYTES PERCENT AUTO 12.8 % (20.5-50.1); MONOCYTES PERCENT AUTO 11.8 % (2-8); NEUTROPHILS PERCENT AUTO 72.4 % (42.2-75.2); PLATELET COUNT,PLT 120 10^3/uL (150-450); RED BLOOD CELL COUNT 3.77 10^6/uL (4.6-6.2); WHITE BLOOD CELL COUNT,WBC 6.4 10^3/uL (5.0-10.0)
[2024-11-22 18:45] LABS: ALANINE AMINOTRANSFERASE,ALT 106 U/L (16-63); ASPARTATE AMNIOTRANSFERASE,AST 138 U/L (15-37); BILIRUBIN TOTAL 1.3 mg/dL (0.2-1.0); BLOOD UREA NITROGEN,BUN 18 mg/dL (7-18); CARBON DIOXIDE,CO2 27 mmol/L (21-32); CHLORIDE,CL 108 mmol/L (98-107); CREATININE 0.89 mg/dL (0.70-1.30); GLUCOSE RANDOM 120 mg/dL (70-99); POTASSIUM,K 3.3 mmol/L (3.5-5.1); PROTEIN TOTAL,TP 6.4 g/dL (6.4-8.2); SODIUM,NA 143 mmol/L (136-145)
[2024-11-22 18:46] LABS: A/G RATIO 0.68; ESTIMATED GFR 99 mL/min (>=60)
[2024-11-22 18:48] LABS: INR 1.1 (0.9-1.2)
[2024-11-22] MEDS: Iopamidol 612 MG/ML 100 ML Bottle IVPUSH ONE (19:56)
[2024-11-22] MEDS: Acetaminophen/HYDROcodone 325-5 MG Tab PO ONE (21:02)
== END 2024-11-22 21:00 | disposition home or self-care (01) ==
LOC: DL.ED 17:05
DX: S32.592A Other specified fracture of left pubis, initial encounter for closed fracture (principal); I10 Essential (primary) hypertension; E78.00 Pure hypercholesterolemia, unspecified; Z91.048 Other nonmedicinal substance allergy status; Z88.8 Allergy status to other drugs, medicaments and biological substances; Z79.899 Other long term (current) drug therapy; W18.39XA Other fall on same level, initial encounter; Y93.89 Activity, other specified
CPT/HCPCS: 36415; 72170; 73552; 73590; 74177; 80053; 85025; 85610; 93005; 99284; A9270; J7030; Q9967; 93010

== ENCOUNTER 2024-11-26 11:42 | Inpatient (IN) | payer MEDICAID ==
[2024-11-26 12:22] LABS: PLATELET COUNT,PLT 151 10^3/uL (150-450); RED BLOOD CELL COUNT 3.93 10^6/uL (4.6-6.2); WHITE BLOOD CELL COUNT,WBC 7.8 10^3/uL (5.0-10.0)
[2024-11-26 12:32] LABS: BASOPHILS PERCENT AUTO 0.4 % (0.0-1.0); EOSINOPHILS PERCENT AUTO 3.3 % (1.0-3.0); LYMPHOCYTES PERCENT AUTO 13.4 % (20.5-50.1); MONOCYTES PERCENT AUTO 15.5 % (2-8); NEUTROPHILS PERCENT AUTO 67.4 % (42.2-75.2)
[2024-11-26 12:41] LABS: INR 1.0 (0.9-1.2); PTT,PARTIAL THROMBOPLSTIN TIME 26.5 SEC (22.0-34.0)
[2024-11-26 12:45] LABS: ALANINE AMINOTRANSFERASE,ALT 68.0 U/L (16-63); ASPARTATE AMNIOTRANSFERASE,AST 64.0 U/L (15-37); BILIRUBIN TOTAL 1.3 mg/dL (0.2-1.0); BLOOD UREA NITROGEN,BUN 12.0 mg/dL (7-18); CARBON DIOXIDE,CO2 30.0 mmol/L (21-32); CHLORIDE,CL 105.0 mmol/L (98-107); CREATININE 0.65 mg/dL (0.70-1.30); EST CRCL DRUG DOSING (CG) 114.4 mL/min; GLUCOSE RANDOM 101.0 mg/dL (70-99); POTASSIUM,K 4.1 mmol/L (3.5-5.1); PROTEIN TOTAL,TP 7.0 g/dL (6.4-8.2); SODIUM,NA 139.0 mmol/L (136-145)
[2024-11-26 12:47] LABS: A/G RATIO 0.59; ESTIMATED GFR 109.0 mL/min (>=60)
[2024-11-26 12:49] LABS: D-DIMER QUANTITATIVE 1220.0 ng/mL (0-400)
[2024-11-26 12:54] LABS: B-TYPE NATRIURETIC PEPTIDE,BNP 95.0 pg/ml (0-100)
[2024-11-26 12:57] LABS: EOSINOPHILS PERCENT MAN 4 % (1-3); LYMPHOCYTES PERCENT MAN 12 % (20-50); MONOCYTES PERCENT MAN 12 % (2-8); SEG NEUTROPHILS PERCENT MAN 72 % (42-75)
[2024-11-26] MEDS: Iopamidol 755 Mg/ML 100 ML Bottle IVPUSH ONE (13:32)
[2024-11-26 14:32] LABS: LACTIC ACID 1.2 mmol/L (0.4-2.0)
[2024-11-26] MEDS: Magnesium Sulfate 2 GM/50 mL 2 GM in Premix Bag 1 BAG IV ONE (15:49)
[2024-11-26 15:50] LABS: PHOSPHORUS 2.2 mg/dL (2.6-4.7); T4 FREE 1.35 ng/dL (0.76-1.46); TSH ULTRASENSITIVE 2.4 uIU/mL (0.36-3.74)
[2024-11-26] MEDS: Furosemide 40 MG/4 ML VIAL IVPUSH ONE (15:50)
[2024-11-26] MEDS: Potassium Chloride 10 MEQ Tab.ER PO SCH (17:25)
[2024-11-26] MEDS: Formoterol/Mometasone 200-5 MCG 13 GM Inhaler INH SCH (18:04)
[2024-11-26] MEDS: Nystatin Topical Powder 60 GM Bottle TOP SCH (20:23)
[2024-11-26] MEDS: Phosphorus #1 250 MG Tab PO SCH (20:24)
[2024-11-26] MEDS: Heparin Sodium 5,000 Units/ML Vial SUBCUT SCH (23:13)
[2024-11-27 06:20] LABS: BASOPHILS PERCENT AUTO 0.3 % (0.0-1.0); EOSINOPHILS PERCENT AUTO 1.9 % (1.0-3.0); LYMPHOCYTES PERCENT AUTO 21.2 % (20.5-50.1); MONOCYTES PERCENT AUTO 21.5 % (2-8); NEUTROPHILS PERCENT AUTO 55.1 % (42.2-75.2); PLATELET COUNT,PLT 180 10^3/uL (150-450); RED BLOOD CELL COUNT 4.03 10^6/uL (4.6-6.2); WHITE BLOOD CELL COUNT,WBC 7.4 10^3/uL (5.0-10.0)
[2024-11-27 06:41] LABS: BLOOD UREA NITROGEN,BUN 11.0 mg/dL (7-18); CARBON DIOXIDE,CO2 32.0 mmol/L (21-32); CHLORIDE,CL 97.0 mmol/L (98-107); CREATININE 0.82 mg/dL (0.70-1.30); EST CRCL DRUG DOSING (CG) 90.69 mL/min; GLUCOSE RANDOM 114.0 mg/dL (70-99); POTASSIUM,K 3.5 mmol/L (3.5-5.1); SODIUM,NA 138.0 mmol/L (136-145)
[2024-11-27 06:42] LABS: ESTIMATED GFR 101.0 mL/min (>=60)
[2024-11-27] MEDS: Phosphorus #1 250 MG Tab PO SCH (12:38)
[2024-11-27] MEDS: Furosemide 40 MG/4 ML VIAL IVPUSH ONE (13:06)
[2024-11-27 15:50] LABS: POTASSIUM,K 3.2 mmol/L (3.5-5.1)
[2024-11-28 06:21] LABS: PLATELET COUNT,PLT 194 10^3/uL (150-450); RED BLOOD CELL COUNT 4.01 10^6/uL (4.6-6.2); WHITE BLOOD CELL COUNT,WBC 5.8 10^3/uL (5.0-10.0)
[2024-11-28 06:25] LABS: BASOPHILS PERCENT AUTO 0.3 % (0.0-1.0); EOSINOPHILS PERCENT AUTO 2.8 % (1.0-3.0); LYMPHOCYTES PERCENT AUTO 19.6 % (20.5-50.1); MONOCYTES PERCENT AUTO 23.9 % (2-8); NEUTROPHILS PERCENT AUTO 53.4 % (42.2-75.2)
[2024-11-28 06:34] LABS: BLOOD UREA NITROGEN,BUN 22.0 mg/dL (7-18); CARBON DIOXIDE,CO2 32.0 mmol/L (21-32); CHLORIDE,CL 97.0 mmol/L (98-107); CREATININE 0.96 mg/dL (0.70-1.30); EST CRCL DRUG DOSING (CG) 77.46 mL/min; ESTIMATED GFR 91.0 mL/min (>=60); GLUCOSE RANDOM 112.0 mg/dL (70-99); POTASSIUM,K 3.5 mmol/L (3.5-5.1); SODIUM,NA 138.0 mmol/L (136-145)
[2024-11-28 07:07] LABS: BAND PERCENT MAN 2 %; EOSINOPHILS PERCENT MAN 3 % (1-3); LYMPHOCYTES PERCENT MAN 19 % (20-50); MONOCYTES PERCENT MAN 23 % (2-8); SEG NEUTROPHILS PERCENT MAN 53 % (42-75)
[2024-11-28] MEDS: Sodium Chloride 0.9% 10 ML Syringe FLUSH PRN (19:41)
[2024-11-29 06:50] LABS: PLATELET COUNT,PLT 221 10^3/uL (150-450); RED BLOOD CELL COUNT 3.92 10^6/uL (4.6-6.2); WHITE BLOOD CELL COUNT,WBC 5.9 10^3/uL (5.0-10.0)
[2024-11-29 06:52] LABS: BASOPHILS PERCENT AUTO 0.3 % (0.0-1.0); EOSINOPHILS PERCENT AUTO 2.4 % (1.0-3.0); LYMPHOCYTES PERCENT AUTO 20.0 % (20.5-50.1); MONOCYTES PERCENT AUTO 22.1 % (2-8); NEUTROPHILS PERCENT AUTO 55.2 % (42.2-75.2)
[2024-11-29 07:02] LABS: BLOOD UREA NITROGEN,BUN 25.0 mg/dL (7-18); CARBON DIOXIDE,CO2 32.0 mmol/L (21-32); CHLORIDE,CL 101.0 mmol/L (98-107); CREATININE 0.71 mg/dL (0.70-1.30); EST CRCL DRUG DOSING (CG) 104.74 mL/min; GLUCOSE RANDOM 101.0 mg/dL (70-99); PHOSPHORUS 2.8 mg/dL (2.6-4.7); POTASSIUM,K 3.9 mmol/L (3.5-5.1); SODIUM,NA 138.0 mmol/L (136-145)
[2024-11-29 07:07] LABS: ESTIMATED GFR 106.0 mL/min (>=60)
[2024-11-29 07:13] LABS: BAND PERCENT MAN 2 %; EOSINOPHILS PERCENT MAN 1 % (1-3); LYMPHOCYTES PERCENT MAN 22 % (20-50); METAMYELOCYTE PERCENT MAN 1; MONOCYTES PERCENT MAN 15 % (2-8); SEG NEUTROPHILS PERCENT MAN 59 % (42-75)
[2024-11-29 13:06] VITALS: BP 106/50; PULSE 88
== END 2024-11-29 15:23 | disposition swing bed (61) | DRG 948 ==
LOC: DL.ED 11:42 → DL.MS 14:24
PROVIDERS: ADMIT Internal Medicine; ATTEND Student in an Organized Health Care Education/Training Program
DX: S32.592A Other specified fracture of left pubis, initial encounter for closed fracture (principal); R60.1 Generalized edema; R60.0 Localized edema; R53.81 Other malaise; H54.7 Unspecified visual loss; E78.00 Pure hypercholesterolemia, unspecified; Z91.048 Other nonmedicinal substance allergy status; I10 Essential (primary) hypertension; W19.XXXA Unspecified fall, initial encounter; J45.909 Unspecified asthma, uncomplicated; E83.39 Other disorders of phosphorus metabolism; S32.592D Other specified fracture of left pubis, subsequent encounter for fracture with routine healing; G89.29 Other chronic pain; B37.9 Candidiasis, unspecified; G62.9 Polyneuropathy, unspecified; E83.42 Hypomagnesemia; F41.9 Anxiety disorder, unspecified; F32.A Depression, unspecified; Z96.649 Presence of unspecified artificial hip joint; Z98.890 Other specified postprocedural states; Z79.899 Other long term (current) drug therapy; Z88.8 Allergy status to other drugs, medicaments and biological substances
CPT/HCPCS: 36415; 71045; 71275; 80053; 83605; 83735; 83880; 84100; 84145; 84439; 84443; 84484; 85025; 85379; 85610; 85730; 86140; 93971; 99285; Q9967; 51702; 80048; 84132; 87040; 94664; 97161-GP; 97165-GO; 97530-GO; 97530-GP; A9270-GY; J0612; J1644; J1938; J3475; J3490

== ENCOUNTER 2024-11-29 09:02 | Inpatient (IN) | payer MEDICAID ==
[2024-11-29] MEDS: Phosphorus #1 250 MG Tab PO SCH (17:17)
[2024-11-29] MEDS: Formoterol/Mometasone 200-5 MCG 13 GM Inhaler INH SCH (18:04)
[2024-11-29] MEDS: Heparin Sodium 5,000 Units/ML Vial SUBCUT SCH (21:19)
[2024-11-29] MEDS: Nystatin Topical Powder 60 GM Bottle TOP SCH (21:20)
[2024-11-30 06:32] LABS: BASOPHILS PERCENT AUTO 0.5 % (0.0-1.0); EOSINOPHILS PERCENT AUTO 3.6 % (1.0-3.0); LYMPHOCYTES PERCENT AUTO 22.0 % (20.5-50.1); MONOCYTES PERCENT AUTO 19.0 % (2-8); NEUTROPHILS PERCENT AUTO 54.9 % (42.2-75.2); PLATELET COUNT,PLT 245 10^3/uL (150-450); RED BLOOD CELL COUNT 3.88 10^6/uL (4.6-6.2); WHITE BLOOD CELL COUNT,WBC 5.8 10^3/uL (5.0-10.0)
[2024-11-30 06:56] LABS: ALANINE AMINOTRANSFERASE,ALT 61.0 U/L (16-63); ASPARTATE AMNIOTRANSFERASE,AST 64.0 U/L (15-37); BILIRUBIN TOTAL 0.8 mg/dL (0.2-1.0); BLOOD UREA NITROGEN,BUN 24.0 mg/dL (7-18); CARBON DIOXIDE,CO2 29.0 mmol/L (21-32); CHLORIDE,CL 104.0 mmol/L (98-107); CREATININE 0.65 mg/dL (0.70-1.30); EST CRCL DRUG DOSING (CG) 122.37 mL/min; GLUCOSE RANDOM 106.0 mg/dL (70-99); POTASSIUM,K 3.9 mmol/L (3.5-5.1); PROTEIN TOTAL,TP 6.9 g/dL (6.4-8.2); SODIUM,NA 140.0 mmol/L (136-145)
[2024-11-30 07:01] LABS: A/G RATIO 0.57; ESTIMATED GFR 109.0 mL/min (>=60)
[2024-12-02] MEDS: Sodium Chloride 0.9% 10 ML Syringe FLUSH PRN (09:38)
[2024-12-02] MEDS: Potassium Chloride 10 MEQ Tab.ER PO STA (13:09)
[2024-12-03 06:32] LABS: PLATELET COUNT,PLT 236 10^3/uL (150-450); RED BLOOD CELL COUNT 3.76 10^6/uL (4.6-6.2); WHITE BLOOD CELL COUNT,WBC 7.4 10^3/uL (5.0-10.0)
[2024-12-03 06:43] LABS: BASOPHILS PERCENT AUTO 0.4 % (0.0-1.0); EOSINOPHILS PERCENT AUTO 1.9 % (1.0-3.0); LYMPHOCYTES PERCENT AUTO 16.4 % (20.5-50.1); MONOCYTES PERCENT AUTO 13.8 % (2-8); NEUTROPHILS PERCENT AUTO 67.5 % (42.2-75.2)
[2024-12-03 06:58] LABS: ALANINE AMINOTRANSFERASE,ALT 57.0 U/L (16-63); ASPARTATE AMNIOTRANSFERASE,AST 64.0 U/L (15-37); BILIRUBIN TOTAL 0.6 mg/dL (0.2-1.0); BLOOD UREA NITROGEN,BUN 20.0 mg/dL (7-18); CARBON DIOXIDE,CO2 32.0 mmol/L (21-32); CHLORIDE,CL 105.0 mmol/L (98-107); CREATININE 0.61 mg/dL (0.70-1.30); EST CRCL DRUG DOSING (CG) 130.39 mL/min; GLUCOSE RANDOM 97.0 mg/dL (70-99); PHOSPHORUS 3.7 mg/dL (2.6-4.7); POTASSIUM,K 4.7 mmol/L (3.5-5.1); PROTEIN TOTAL,TP 7.1 g/dL (6.4-8.2); SODIUM,NA 143.0 mmol/L (136-145)
[2024-12-03 07:01] LABS: A/G RATIO 0.54; ESTIMATED GFR 111.0 mL/min (>=60)
[2024-12-03 07:13] LABS: EOSINOPHILS PERCENT MAN 3 % (1-3); LYMPHOCYTES PERCENT MAN 17 % (20-50); MONOCYTES PERCENT MAN 9 % (2-8); SEG NEUTROPHILS PERCENT MAN 71 % (42-75)
[2024-12-03 08:17] LABS: FOLIC ACID 12.8 ng/mL (8.6-58.9)
[2024-12-03 08:31] LABS: IRON,FE 86.0 ug/dL (65-175); PERCENT FE SATURATION 24.5 % (20.0-50.0)
[2024-12-03] MEDS: Sennosides/Docusate Sodium 50-8.6 MG Tab PO PRN (10:36)
[2024-12-04 06:17] LABS: BASOPHILS PERCENT AUTO 0.5 % (0.0-1.0); EOSINOPHILS PERCENT AUTO 2.6 % (1.0-3.0); LYMPHOCYTES PERCENT AUTO 20.1 % (20.5-50.1); MONOCYTES PERCENT AUTO 13.1 % (2-8); NEUTROPHILS PERCENT AUTO 63.7 % (42.2-75.2); PLATELET COUNT,PLT 245 10^3/uL (150-450); RED BLOOD CELL COUNT 3.75 10^6/uL (4.6-6.2); WHITE BLOOD CELL COUNT,WBC 7.6 10^3/uL (5.0-10.0)
[2024-12-04 06:36] LABS: BLOOD UREA NITROGEN,BUN 21.0 mg/dL (7-18); CARBON DIOXIDE,CO2 30.0 mmol/L (21-32); CHLORIDE,CL 106.0 mmol/L (98-107); CREATININE 0.64 mg/dL (0.70-1.30); EST CRCL DRUG DOSING (CG) 124.28 mL/min; GLUCOSE RANDOM 103.0 mg/dL (70-99); POTASSIUM,K 3.8 mmol/L (3.5-5.1); SODIUM,NA 144.0 mmol/L (136-145)
[2024-12-04 06:39] LABS: ESTIMATED GFR 109.0 mL/min (>=60)
[2024-12-04] MEDS: Potassium Chloride 10 MEQ Tab.ER PO SCH (08:58)
[2024-12-05 06:59] LABS: BLOOD UREA NITROGEN,BUN 24.0 mg/dL (7-18); CARBON DIOXIDE,CO2 29.0 mmol/L (21-32); CHLORIDE,CL 105.0 mmol/L (98-107); CREATININE 0.68 mg/dL (0.70-1.30); EST CRCL DRUG DOSING (CG) 116.97 mL/min; GLUCOSE RANDOM 96.0 mg/dL (70-99); POTASSIUM,K 3.8 mmol/L (3.5-5.1); SODIUM,NA 142.0 mmol/L (136-145)
[2024-12-05 07:01] LABS: ESTIMATED GFR 107.0 mL/min (>=60)
[2024-12-05] MEDS: Potassium Chloride 10 MEQ Tab.ER PO SCH (08:52)
[2024-12-05] MEDS: Potassium Chloride 10 MEQ Tab.ER PO ONE (17:31)
[2024-12-06 06:24] LABS: BLOOD UREA NITROGEN,BUN 24.0 mg/dL (7-18); CARBON DIOXIDE,CO2 33.0 mmol/L (21-32); CHLORIDE,CL 101.0 mmol/L (98-107); CREATININE 0.89 mg/dL (0.70-1.30); EST CRCL DRUG DOSING (CG) 89.37 mL/min; ESTIMATED GFR 99.0 mL/min (>=60); GLUCOSE RANDOM 97.0 mg/dL (70-99); POTASSIUM,K 3.7 mmol/L (3.5-5.1); SODIUM,NA 144.0 mmol/L (136-145)
[2024-12-06] MEDS: Potassium Chloride 10 MEQ Tab.ER PO SCH (11:34)
[2024-12-07 06:28] LABS: PLATELET COUNT,PLT 256 10^3/uL (150-450); RED BLOOD CELL COUNT 3.99 10^6/uL (4.6-6.2); WHITE BLOOD CELL COUNT,WBC 8.4 10^3/uL (5.0-10.0)
[2024-12-07 06:32] LABS: BASOPHILS PERCENT AUTO 0.5 % (0.0-1.0); EOSINOPHILS PERCENT AUTO 1.5 % (1.0-3.0); LYMPHOCYTES PERCENT AUTO 18.0 % (20.5-50.1); MONOCYTES PERCENT AUTO 15.6 % (2-8); NEUTROPHILS PERCENT AUTO 64.4 % (42.2-75.2)
[2024-12-07 06:44] LABS: BLOOD UREA NITROGEN,BUN 25.0 mg/dL (7-18); CARBON DIOXIDE,CO2 32.0 mmol/L (21-32); CHLORIDE,CL 103.0 mmol/L (98-107); CREATININE 0.68 mg/dL (0.70-1.30); EST CRCL DRUG DOSING (CG) 116.97 mL/min; GLUCOSE RANDOM 116.0 mg/dL (70-99); POTASSIUM,K 3.4 mmol/L (3.5-5.1); SODIUM,NA 143.0 mmol/L (136-145)
[2024-12-07 06:46] LABS: ESTIMATED GFR 107.0 mL/min (>=60)
[2024-12-07 06:54] LABS: EOSINOPHILS PERCENT MAN 2 % (1-3); LYMPHOCYTES PERCENT MAN 14 % (20-50); MONOCYTES PERCENT MAN 16 % (2-8); SEG NEUTROPHILS PERCENT MAN 68 % (42-75)
[2024-12-07] MEDS: Potassium Chloride 10 MEQ Tab.ER PO SCH (08:19)
[2024-12-07] MEDS: FLU (Fluarix Triv) 25-26 (6MOS UP)/PF 45 MCG/0.5 ML Syringe IM ONE (10:01)
[2024-12-07 10:34] VITALS: BP 112/69; PULSE 86
== END 2024-12-07 10:50 | disposition other institution (70) | DRG 948 ==
LOC: DL.MS 14:42
PROVIDERS: ADMIT Student in an Organized Health Care Education/Training Program; ATTEND Student in an Organized Health Care Education/Training Program
DX: R53.81 Other malaise (principal); E87.70 Fluid overload, unspecified; R01.1 Cardiac murmur, unspecified; D53.9 Nutritional anemia, unspecified; G89.29 Other chronic pain; J45.909 Unspecified asthma, uncomplicated; F41.8 Other specified anxiety disorders; E78.00 Pure hypercholesterolemia, unspecified; I10 Essential (primary) hypertension; H54.7 Unspecified visual loss; B37.2 Candidiasis of skin and nail; G62.9 Polyneuropathy, unspecified; R10.31 Right lower quadrant pain; Z87.81 Personal history of (healed) traumatic fracture; Z91.81 History of falling; Z79.1 Long term (current) use of non-steroidal anti-inflammatories (NSAID); Z79.51 Long term (current) use of inhaled steroids; Z79.899 Other long term (current) drug therapy; Z88.8 Allergy status to other drugs, medicaments and biological substances; Z91.09 Other allergy status, other than to drugs and biological substances
CPT/HCPCS: 36415; 80048; 80053; 82607; 82728; 82746; 82947; 83540; 83550; 83735; 84100; 85025; 86140; 90656; 97110-GP; 97116-GP; 97161-GP; 97165-GO; 97530-GP; 99222; 99309; 99315; A9270-GY; G0008; J1644; J3490